=== PATIENT | female | born 1985 | race Caucasian/White ===

== ENCOUNTER 2017-12-01 11:47 | Emergency (ER) | payer BC ==
[2017-12-01] MEDS ORDERED: 0.9 % SODIUM CHLORIDE 1,000 ML BAG IV ONE ×2 (12:02→12:58)
[2017-12-01] MEDS ORDERED: ACETAMINOPHEN 325 MG TAB PO ONE (12:02)
--- NOTE | 2017-12-01 12:10 | Emergency Department Record ---
History of Present Illness - General Chief complaint: Flu Like Symptoms Stated complaint: COUGH,BODY ACHES,BAUTISTA Time Seen by Provider: 12/01/17 11:49 Source: Patient Mode of Arrival: Ambulatory Limitations: No limitations - History of Present Illness Initial comments: The patient is here due to a 2 day hx of cough, body aches, low grade fever, mild BAUTISTA, and generalized weakness. She denies any CP, SOB, AP, nausea or vomiting. Her last Motrin was 3 hours ago and she did not get a flu shot this year. MD Complaint: Generalized weakness Onset/Timin -: Days(s) Location: Generalized Severity: Mild Severity scale (1-10): 8 Quality: Aching Consistency: Constant Improves with: None Worsens with: None Associated Symptoms: Headaches - Related Data Previous Rx's Medication Instructions Recorded Oseltamivir Phosphate [Tamiflu] 75 mg PO BID #9 capsule 12/01/17 Allergies Allergy/AdvReac Type Severity Reaction Status Date / Time Penicillins Allergy Unknown PT UNSURE Unverified 10/02/17 13:07 OF REACTION Travel Screening - Travel/Exposure Within Last 30 Days Have you traveled within the last 30 days?: No Review of Systems Constitutional: Reports: Chills, Fever, Malaise Eyes: Denies: Eye discharge ENT: Denies: Congestion Respiratory: Reports: Cough. Denies: Dyspnea Past Medical History - SOCIAL HISTORY Smoking Status: Never smoker Alcohol Use: None Drug Use: None - RESPIRATORY Hx Respiratory Disorders: No - CARDIOVASCULAR Hx Cardio Disorders: No - NEURO Hx Neuro Disorders: No - GI Hx GI Disorders: No - Hx Genitourinary Disorders: No - ENDOCRINE Hx Endocrine Disorders: No - MUSCULOSKELETAL Hx Musculoskeletal Disorders: No - PSYCH Hx Psych Problems: Yes Hx Anxiety: Yes Hx Depression: Yes - HEMATOLOGY/ONCOLOGY Hx Hematology/Oncology Disorders: No Family Medical History Any Significant Family History?: No Physical Exam - General General Appearance: Alert, Oriented x3, Cooperative, No acute distress - Head Head exam: Atraumatic, Normocephalic, Normal inspection - Eye Eye exam: Normal appearance, PERRL - ENT Throat exam: Normal inspection. negative: Tonsillar erythema, Tonsillar exudate - Neck Neck exam: Normal inspection, Full ROM. negative: Meningismus (The neck is very supple.), Tenderness - Respiratory Respiratory exam: Normal lung sounds bilaterally. negative: Respiratory distress - Cardiovascular Cardiovascular Exam: Regular rate, Normal rhythm, Normal heart sounds - GI/Abdominal GI/Abdominal exam: Soft, Normal bowel sounds. negative: Tenderness - Extremities Extremities exam: Normal inspection, Full ROM, Normal capillary refill. negative: Tenderness - Neurological Neurological exam: Alert, Normal gait, Oriented X3. negative: Abnormal gait, Motor sensory deficit Course Vital Signs 12/01/17 11:49 Temperature 99.6 F Pulse Rate 147 H Respiratory 15 Rate Blood Pressure 124/78 Pulse Ox 99 - Reevaluation(s) Reevaluation #1: The patient is doing well. Her body aches are improved and her HR is improved. I did discuss the lab results and positive Flu A with the patient. 12/01/17 13:05 Medical Decision Making - Data Complexity MDM Data: Labs Ordered and/or Reviewed (Flu A Positive.), X-Ray Ordered and/or Reviewed - Lab Data Result diagrams: 12/01/17 12:10 12/01/17 12:10 - Radiology Data Radiology results: Report reviewed (CXR: Neg.) Disposition Disposition: Discharge Clinical Impression: Influenza A Disposition: Home, Self-Care Condition: (2) Stable Instructions: Influenza (ED) Additional Instructions: Please drink plenty of fluids and use Tylenol and Motrin for fever and body aches. Please continue the Tamiflu as directed. Follow up with your PCP if not better in 2 days and return to the ER for any worsening fever, cough, or any trouble breathing. Prescriptions: Oseltamivir Phosphate [Tamiflu] 75 mg PO BID #9 capsule Forms: Patient Portal Access Time of Disposition: 13:22 Quality - Quality Measures Quality Measures: N/A - Blood Pressure Screening View Details: Yes Does Patient Have Any of the Following: No Blood Pressure Classification: Pre-Hypertensive BP Reading Systolic Measurement: 125 Diastolic Measurement: 71 Screening for High Blood Pressure: < Pre-Hypertensive BP, F/U Documented > [ [id number]] Pre-Hypertensive Follow-up Interventions: Referral to alternative/primary care provider.
[2017-12-01 12:22] LABS: HEMATOCRIT 39.6 % (35.0-47.0); HEMOGLOBIN 12.9 gm/dl (11.6-16.0); MEAN CELL VOLUME 84.1 fl (81-97); MEAN CORPUSCULAR HEMOGLOBIN 27.4 pg (27-33); MEAN CORPUSCULAR HGB CONC 32.6 g/dl (32-36); MEAN PLATELET VOLUME 8.8 fl (7.4-10.4); PLATELET COUNT 182 K/uL (130-400); RED BLOOD COUNT 4.71 M/uL (3.80-5.40); RED CELL DISTRIBUTION WIDTH 13.1 % (11.5-14.5); WHITE BLOOD COUNT W/O DIFF 5.1 K/uL (4.2-12.2)
[2017-12-01 12:35] LABS: BLOOD UREA NITROGEN 11 mg/dL (6-20); CREATININE 0.8 mg/dL (0.5-0.9); EST GLOMERULAR FILTRATION RATE > 60 mL/min
[2017-12-01 12:36] LABS: TOTAL PROTEIN 7.8 g/dL (6.6-8.7)
[2017-12-01 12:37] LABS: INFLUENZA A POSITIVE (NEGATIVE); INFLUENZA B NEGATIVE (NEGATIVE)
[2017-12-01 12:38] LABS: GLUCOSE,RANDOM 75 mg/dL (74-109)
[2017-12-01 12:40] LABS: ALT/SGPT 18 U/L (<33); AST/SGOT 15 U/L (10.0-35.0)
[2017-12-01 12:41] LABS: ALB/GLOB RATIO 1.4 (1.1-1.8); ALBUMIN 4.5 g/dL (4.0-5.0); ALKALINE PHOSPHATASE 62 U/L (35-104)
[2017-12-01 12:52] LABS: THYROID STIMULATING HORMONE 1.94 uIU/mL (0.270-4.20)
[2017-12-01] MEDS ORDERED: OSTELTAMIVIR 75 MG CAP PO ONE (13:04)
--- NOTE | 2017-12-02 19:16 | RADIOLOGY REPORT ---
EXAM: CHEST 2 VIEWS HISTORY: COUGH AND WEAKNESS FOR TWO DAYS. TECHNIQUE: Upright PA and lateral views of the chest. COMPARISON: None. FINDINGS: The cardiomediastinal silhouette is normal in size and configuration. The pulmonary vasculature is nondilated. The lungs and pleural spaces are clear. Minor levocurvature of the upper thoracic spine. The osseous structures are otherwise unremarkable. IMPRESSION: NO RADIOGRAPHIC EVIDENCE OF ACUTE CARDIOPULMONARY DISEASE. JOB NUMBER: [id number] [facility]
== END 2017-12-01 13:36 | disposition home or self-care (01) ==
LOC: ER 11:47
DX: J10.1 Influenza due to other identified influenza virus with other respiratory manifestations (principal); R05 Cough; R51 Headache; R53.1 Weakness
CPT/HCPCS: 71046; 80053; 84443; 85027; 87400; 96360; 99284; J7030